=== PATIENT | male | born 1940 | race Caucasian/White ===

== ENCOUNTER 2017-10-11 11:30 | Observation (INO) | payer MEDICARE, OTHER ==
--- NOTE | 2017-10-11 12:04 | ED ---
Palpitations / Dysrhythmia - HPI Summary HPI Summary: This is migueibe Duc Patton documenting for attending Dr. Eddie Rios This patient is a 77 year old M presenting to [facility] with a chief complaint of irregular heart rate since at the latest 1045. Pt denies CP, SOB, and palpitations. FHx 1 brother: 3 ablations for Afib, 2nd brother: Afib. PMHx HTN, 3 stents, no OK, fx humerus, replaced humerus. In addition, pt endorses concern of consistently dropping platelet count. I, Dr. Morgan personally performed the services described in this documentation as scribed in my presence and it is both accurate and complete. - History of Current Complaint Chief Complaint: EDDysrhythmPalp Hx Obtained From: Patient Onset/Duration: Lasting Hours, Still Present Severity Initially: Mild Severity Currently: Mild Character: Irregular Aggravating: Nothing Alleviating: Nothing Associated Signs & Symptoms: Negative - Allergy/Home Medications Allergies/Adverse Reactions: Allergies Allergy/AdvReac Type Severity Reaction Status Date / Time morphine Allergy Unknown Verified 10/11/17 12:05 Reaction Details Home Medications: Home Medications Aspirin EC TAB* [Ecotrin EC Low Dose 81 MG*] 81 mg PO DAILY 10/11/17 [History Confirmed 10/11/17] Calcium Carbonate [Calcium] 1,000 mg PO DAILY 10/11/17 [History Confirmed ] Cetirizine* [ZyrTEC 10 MG TAB*] 10 mg PO DAILY 10/11/17 [History Confirmed 10/11] Cholecalciferol (Vitamin D3) [Vitamin D3] 1,000 unit PO DAILY 10/11/17 [History Confirmed 10/11/17] Fluticasone NASAL SPRAY 50MCG* [Flonase NASAL SPRAY 50MCG*] 2 spray BOTH NARES BID PRN 10/11/17 [History Confirmed 10/11/17] Gabapentin TAB(NF) [Neurontin 600 mg TAB(NF)] 300 mg PO QPM 10/11/17 [History Confirmed 10/11/17] Losartan TAB* [Cozaar TAB*] 50 mg PO DAILY 10/11/17 [History Confirmed 10/11/17] Pitavastatin (NF) [Livalo (NF)] 4 mg PO DAILY 10/11/17 [History Confirmed ] PMH/Surg Hx/FS Hx/Imm Hx Endocrine/Hematology History: Denies: Hx Sickle Cell Disease Cardiovascular History: Reports: Hx Hypertension Denies: Hx Myocardial Infarction History: Denies: Hx Dialysis Musculoskeletal History: Reports: Hx of Fracture(s) - left humerus, 6 places, replaced Sensory History: Reports: Hx Contacts or Glasses Denies: Hx Legally Blind, Hx Deafness Opthamlomology History: Reports: Hx Contacts or Glasses Denies: Hx Legally Blind EENT History: Denies: Hx Deafness Psychiatric History: Denies: Hx Schizophrenia - Surgical History Surgery Procedure, Year, and Place: left humerus replacement. - Family History Known Family History: Positive: Other - Afib, both younger brothers Negative: Hypertension, Diabetes - Social History Occupation: Retired Alcohol Use: Daily Alcohol Amount: 2 beers/night Hx Substance Use: No Hx Tobacco Use: Yes Smoking Status (MU): Former Smoker Review of Systems Negative: Fever Positive: Other - irregular heart beat. Negative: Palpitations, Chest Pain Negative: Shortness Of Breath Positive: no symptoms reported All Other Systems Reviewed And Are Negative: Yes Physical Exam - Summary Physical Exam Summary: VITAL SIGNS: Reviewed. GENERAL: Patient is a well-developed and nourished who is lying comfortable in the stretcher. Patient is not in any acute respiratory distress. HEAD AND FACE: No signs of trauma. No ecchymosis, hematomas or skull depressions. No sinus tenderness. EYES: PERRLA, EOMI x 2, No injected conjunctiva, no nystagmus. EARS: Hearing grossly intact. Ear canals and tympanic membranes are within normal limits. MOUTH: Oropharynx within normal limits. NECK: Supple, trachea is midline, no adenopathy, no JVD, no carotid bruit, no c- spine tenderness, neck with full ROM. CHEST: Symmetric, no tenderness at palpation LUNGS: Clear to auscultation bilaterally. No wheezing or crackles. CVS: Irregularly irregular rhythm, tachycardia at 126 beats per minutes. S1 and S2 present, no murmurs or gallops appreciated. ABDOMEN: Soft, non-tender. No signs of distention. No rebound no guarding, and no masses palpated. Bowel sounds are normal. EXTREMITIES: FROM in all major joints, no edema, no cyanosis or clubbing. NEURO: Alert and oriented x 3. No acute neurological deficits. Speech is normal and follows commands. SKIN: Dry and warm Triage Information Reviewed: Yes Vital Signs On Initial Exam: Initial Vitals Temp Pulse Resp BP Pulse Ox 97.7 F 64 18 142/78 98 10/11/17 11:32 10/11/17 11:32 10/11/17 11:32 10/11/17 11:32 10/11/17 11:32 Vital Signs Reviewed: Yes Diagnostics - Vital Signs Vital Signs Temp Pulse Resp BP Pulse Ox 10/11/17 11:32 97.7 F 64 18 142/78 98 - Laboratory Result Diagrams: 10/11/17 12:15 10/11/17 12:15 Lab Statement: Any lab studies that have been ordered have been reviewed, and results considered in the medical decision making process. - Radiology CXR Radiology Interpretation Completed By: Radiologist - No active cardiopulmonary disease is noted. Dr. Morgan has reviewed this report. - EKG 1206 Cardiac Rate: Tachycardia EKG Rhythm: Atrial Fibrillation ST Segment: Normal EKG Interpretation: ventricular bigeminy EKG Comparison: Other - no prior to compare with 1437 Cardiac Rate: NL - 94 EKG Rhythm: Atrial Fibrillation EKG Interpretation: atrial fibrillation, ventricular bigeminy, no change from previous EKG EKG Comparison: No Significant Change Course/Dx - Course Assessment/Plan: This patient is a 77-year-old male who presents to the emergency room without any complaints. He reports that he went to see the primary care physician and he was told that he has an increased heart rate therefore he was sent to the emergency department for further workup and management. EKG shows an atrial fibrillation with RVR and with multiple PVCs was ablated with a bigeminy. 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 At this point the patients examination is rate controlled, the patient was given aspirin. Blood test results without any significant abnormality except for troponin of 0.04. At this time I discussed the case with Dr. Ochoa from cariology and she recommends for the patient to be admitted to hospitals to place the patient into ablation and to order an echocardiogram s an inpatient. I discussed the case with Dr. Raymundo who accepted the patient for admission and she would place the patient in anticoagulants and ordered the echocardiogram. Patient is hemodynamically stable alert and oriented 3. - Diagnoses Differential Diagnosis/HQI/PQRI: Positive: Hypokalemia, Medication Induced, Paroxymal SVT, V-Tach Provider Diagnoses: Atrial fibrillation with RVR, Troponin level elevated - Physician Notifications Discussed Care Of Patient With: Wendy Ochoa Time Discussed With Above Provider: 14:55 Instructed by Provider To: Other - Recommends admission. Discharge - Sign-Out/Discharge Documenting (check all that apply): Patient Departure - admit - Discharge Plan Condition: Fair Disposition: ADMITTED TO [facility] Referrals: Ender Cadena [Primary Care Provider] - - Billing Disposition and Condition Condition: FAIR Disposition: Admitted to [facility] Consult Consult: 1500 Dr. Raymundo: Accepts admission.
--- OUTSIDE RECORDS SUMMARY | 2017-10-11 12:04 | XMS REPORT ---
:1940 External Reference #:[id number] Author Organization [facility] Address [address] [place] [address] [place] [address] Phone [phone] Care Team Providers Name Role Phone [facility] Primary Care Physician Unavailable Payers Type Date Identification Numbers Payment Provider Subscriber Medicare Primary Policy Number: [id number] Medicare Calin Kirby PayID: [id number] [address] [place] [address] [facility] Part [facility] Policy Number: [id number] [employer] Calin Kirby PayID: [id number] [address] [address] [facility] [employer] [facility] [place] [address] Problems Date Description Provider Status Onset: 11/29/2016 Obstructive sleep apnea syndrome Loreto Petit MD Active Onset: 10/18/2016 Difficulty breathing Loreto Petit MD Active Social History Type Date Description Comments Marital Status Lives With ETOH Use Consumes 1 beer per day Smoking Patient is a former smoker 2 PPD for 35 years. Quit in 1997 Recreational Drug Use Denies Drug Use Daily Caffeine Consumes on average 3 cups of regular coffee per day Exercise Type/Frequency Exercises sporadically Exercise Type/Frequency Treadmill, weight lifting 3[place]4x [place] 11[place]29[place]16 - Sleep Follow Up Allergies, Adverse Reactions, Alerts Date Description Reaction Status Severity Comments 10/18/2016 Morphine Liposomal active Medications Medication Date Status Form Strength Qnty SIG Indications Ordering Provider Losartan Active Tablets 50mg 1 by mouth Unknown Potassium 000 every day Livalo Active Tablets 4mg take 1 Unknown 000 tablet by mouth every night at bedtime Aspirin Active Tablets DR 81mg 1 by mouth Unknown 000 every day Calcium Active Tablets 500mg 2 by mouth Unknown 000 a day Vitamin D-3 Active Capsules 1000Unit 1 by mouth Unknown 000 every day Zyrtec 0 Active Tablets 10mg as needed Unknown Allergy 000 Gabapentin Active Tablets 600mg 1/2 tab by Unknown 000 mouth prn Flonase Active Suspension 50mcg/Act spray 1 Unknown Allergy 000 spray in Relief each nostril twice daily prn Vital Signs Date Vital Result Comment 2017 Height 68 inches 5'8" per pt Weight 186.12 lb Heart Rate 70 /min recheck 88 apical, irrgular, irregular capture BP Systolic Sitting 144 mmHg Rue regular cuff BP Diastolic Sitting 66 mmHg Rue regular cuff BP Systolic Recheck 160 mmHg BP Diastolic Recheck 80 mmHg Respiratory Rate 16 /min O2 % BldC Oximetry 98 % BMI (Body Mass Index) 28.3 kg/m2 11/29/2016 Height 68 inches 5'8" per pt Weight 190.00 lb With shoes Heart Rate 80 /min BP Systolic Sitting 132 mmHg Lue reg cuff BP Diastolic Sitting 68 mmHg Lue reg cuff Respiratory Rate 20 /min O2 % BldC Oximetry 97 % On Ra BMI (Body Mass Index) 28.9 kg/m2 10/18/2016 Height 68 inches 5'8" Weight 188.00 lb Heart Rate 72 /min BP Systolic Sitting 116 mmHg BP Diastolic Sitting 68 mmHg Respiratory Rate 14 /min O2 % BldC Oximetry 97 % BMI (Body Mass Index) 28.6 kg/m2 Neck Circumference in inches 15.5 Results Description No Information Procedures Date CPT Code Description Status 11/17/2016 96861 Polysomnography Sleep Staging 4+ Parameters W/Cpap Completed Encounters Type Date Location Provider CPT E/M Dx Office Visit 2017 [facility] Helen Bazzi, [address] G47.33 11:00a [facility], RN, ORE DRESSING ENGINEER-BC R00.8 Office Visit 11/29/2016 1:00p [place] [place] [address] G47.33 [facility] Office Visit 10/18/2016 2:00p Pul[facility]ology [place] [address] R06.83 [facility] R06.81 G47.10 R12 Plan of Care 2017 - Heeln Bazzi DNP, RN, ORE DRESSING ENGINEER-BCG47.33 Obstructive sleep apnea ( adult) (pediatric)Comments:11/17/16 NPSG severe AHI 33.6/hour, worse REM 50.3/ hour, supine 81.4/hour, dahlia oxygen 83%. wt 188#On CPAP auto 8-10 AHI 2.9/ hourFollow up:1 yearRecommendations:Continue PAP device, Benefitting and compliant with treatment. Cleaning Wipe off mask daily (baby wipe-no scent, or warm water) Clean mask, tubing, filter, and water chamber weekly in mild no scent dish soap and water. Hang to dry. So-Clean is an option (not covered by insurance) If you have any sleepiness while driving you MUST avoid operating a vehicle or machinery. If you have difficulty with your equipment, or need to replace your mask or hoses, please contact your homecare agency. A weight change of 20 pounds or more may have an effect on your equipment; if you are experiencing problems please call for an appointment. If you have any further questions, please call the [facility] at [phone].R07.8 Other abnormalities of heart beatRecommendations:To go to Emergency Department via wheelchair for irregular heart beat evaluation. Report provided to Wisam the charge nurse.
[2017-10-11 12:24] LABS: ABS Basophils 0 10^3/ul (0-0.2); ABS Eosinophils 0.1 10^3/ul (0-0.6); ABS Lymphocytes 1.3 10^3/ul (1.0-4.8); ABS Monocytes 0.5 10^3/ul (0-0.8); ABS Neutrophils 3.5 10^3/ul (1.5-7.7); ABS Nucleated RBC 0 10^3/ul; Hematocrit 43 % (42-52); Hemoglobin 14.2 g/dl (14.0-18.0); Mean Corpuscular HGB Conc 33 g/dl (31-36); Mean Corpuscular Hemoglobin 31 pg (27-31); Mean Corpuscular Volume 94 fL (80-94); Mean Platelet Volume 10.4 um3 (7.4-10.4); Nucleated Red Blood Cells % 0.1; Platelet Count 136 10^3/ul (150-450); Red Blood Count 4.61 10^6/ul (4.00-5.40); Red Cell Distribution Width 14 % (10.5-15); White Blood Count 5.4 10^3/ul (3.5-10.8)
[2017-10-11] MEDS ORDERED: Diltiazem IV VIAL* 5 MG/ML 10 ML VIAL IV SLOW PU ONE (12:33)
[2017-10-11] MEDS ORDERED: NS 0.9% 1000 ML* 1,000 ML IV ONE (12:33)
[2017-10-11 12:38] LABS: INR 0.95 (0.77-1.02)
[2017-10-11] MEDS ORDERED: Diltiazem IV* 5 MG/ML 5 ML VIAL (for loading dose/IV Push) (25 MG) ONE (12:41)
--- NOTE | 2017-10-11 13:07 | RAD ---
Indication: Chest pain. Single frontal view of the chest performed at 1240 hours was reviewed. No prior study is available for comparison. No mediastinal shift is noted. Heart is of normal size and configuration. Lung ledesma appear clear. Evidence of left humeral head prosthesis is present. IMPRESSION: NO ACTIVE CARDIOPULMONARY DISEASE IS NOTED.
[2017-10-11 13:37] LABS: Urine Appearance Clear; Urine Blood Negative (Negative); Urine Color Colorless; Urine Ketones Negative (Negative); Urine Protein Negative (Negative); Urine Specific Gravity 1.004 (1.010-1.030); Urine Urobilinogen Negative (Negative)
[2017-10-11] MEDS ORDERED: Metoprolol Tartrate TAB* 25 MG PO ONE (16:46)
--- NOTE | 2017-10-11 21:03 | HP ---
CC: NARA Villasenor * HISTORY AND PHYSICAL: DATE OF ADMISSION: 10/11/17 PRIMARY CARE PROVIDER: NARA Villasenor. CHIEF COMPLAINT: Rapid heart rate. HISTORY OF PRESENT ILLNESS: Mr. Kirby is a 77-year-old male who was at a routine visit with Helen Bazzi NP, for evaluation of his obstructive sleep apnea when on exam he was noted to be in rapid atrial fibrillation. The patient was wheeled onto the emergency room for evaluation. The patient states that he has been feeling incredibly well. He states, in fact, yesterday he was on a bike. He denies any chest pain. He denies any palpitations. He denies shortness of breath. He denies any increased fatigue. The patient states he recalls nothing out of the ordinary over the last 2 weeks. PAST MEDICAL HISTORY: 1. Hypertension. 2. Hyperlipidemia. PAST SURGICAL HISTORY: 1. Left partial shoulder replacement. 2. Hemorrhoidectomy. 3. Hernia repair. MEDICATIONS: 1. Flonase 2 squirts both nostrils twice daily p.r.n. allergies. 2. Gabapentin 300 mg p.o. q.h.s. 3. Zyrtec 10 mg p.o. daily. 4. Losartan 50 mg p.o. daily. 5. Vitamin D3 1000 units p.o. daily. 6. Calcium carbonate 1000 mg p.o. daily. 7. Aspirin 81 mg p.o. daily. 8. Pitavastatin 4 mg p.o. daily. ALLERGIES: MORPHINE. FAMILY HISTORY: Mom at the age of 86, she had Parkinson's. Dad at the age of 48. He from complications from a surgery. SOCIAL HISTORY: The patient is a former smoker. He quit approximately 20 years ago. He admits to smoking 2 to 3 packs per day for approximately 40 years. He drinks 1 to 2 beers nightly. He does state that on Monday evening, he drank 4 to 5 drinks as opposed to his normal 1 to 2. 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 He is . He has 3 children. His , Rafaela, is his healthcare proxy. REVIEW OF SYSTEMS: A complete 11 system review of systems was obtained. Pertinent positives and negatives as per HPI and otherwise negative. PHYSICAL EXAMINATION GENERAL: The patient is a well-developed, elderly male, seen sitting up in the stretcher, in no acute distress. VITAL SIGNS: Blood pressure 182/98, heart rate 142, respiratory rate 17, temp 97.9, O2 sat 97% on room air. HEENT: Pupils are equal and round. Extraocular muscles are intact. Oropharynx is clear. Oral mucosa is moist. NECK: There is no submandibular, cervical, or supraclavicular adenopathy. Thyroid is not enlarged. No thyroid nodules are noted. PULMONARY: Lungs are clear to auscultation bilaterally. CARDIAC: Normal S1, S2. Heart rate rate is irregularly regular, it is tachycardic. There are no murmurs. There is no lower extremity edema. ABDOMEN: Bowel sounds present. Abdomen is soft, nontender, nondistended. MUSCULOSKELETAL: There is no cyanosis or clubbing of the digits. There is full active range of motion of all 4 extremities. NEURO: Cranial nerves II through XII are grossly intact. Sensation is intact to light touch throughout. Strength is 5/5 and symmetric in both upper and lower extremities bilaterally. PSYCH: The patient is alert. He is oriented x3. Affect appears appropriate. SKIN: Warm and dry. There are no rashes. LABORATORY DATA: WBC 5.4, hemoglobin 14.2, hematocrit 43, platelets 136. INR 0.95. Sodium 140, potassium 4.4, chloride 106, CO2 29, BUN 17, creatinine 1.03 , glucose 109, lactic acid 0.7, calcium 9.5, magnesium 2.4. Bilirubin 0.8, AST 16, ALT 12, alk phos 58. Troponin 0.04. BNP 351. Albumin 4.2. TSH 2.61. Urinalysis is negative for signs of infection. EKG reveals atrial fibrillation with frequent ventricular bigeminy. Chest x-ray reveals no active cardiopulmonary disease. ASSESSMENT AND PLAN: Mr. Kirby is a 77-year-old male with a history of hypertension and hyperlipidemia, who was seen today for routine followup medical visit when he was identified to be in rapid atrial fibrillation. 1. Rapid atrial fibrillation. The patient has received initially IV diltiazem in the emergency room with some improvement in his heart rate. He slowed into the 90s; however, as the diltiazem wore off, his heart rate has increased up to the 120s to 130s again. The patient subsequently being given a dose of metoprolol tartrate 25 mg p.o. x1. The patient was not completely sure that he wanted to be admitted; however, after his arrived, he did decide that he would stay for admission and cardiology consultation. The patient will be started on metoprolol tartrate 25 mg p.o. twice daily and Eliquis 5 mg p.o. twice daily. He will be seen by Cardiology tomorrow. He will be n.p.o. after midnight for a possible JULI-guided cardioversion. The patient is in agreement with this plan. It is unclear how long the patient had been in atrial fibrillation or what precipitated it. 2. Hypertension. The patient's blood pressure has fluctuated quite a bit in the emergency room. I have decreased his a.m. losartan dose to 25 mg as I am adding metoprolol; however, if his blood pressure remains elevated through the night, the losartan should be increased back up to 50 mg. 3. Hyperlipidemia. We will continue statin. 4. Obstructive sleep apnea. We will continue CPAP. The patient may use his own, which his brought. 5. DVT prophylaxis: According to the Adult Thrombosis Prophylaxis Risk Factor Assessment Guide, the patient has a total risk factor score of 4, making him high risk. He is going to be started on Eliquis for his atrial fibrillation and this will act as his DVT prophylaxis. 6. Code status is full. TIME SPENT: Sixty five minutes was spent admitting this patient. [id number]/CPS #: [id number] MTDD
[2017-10-11] MEDS: Metoprolol Tartrate TAB* 25 MG PO SCH (21:09)
[2017-10-11] MEDS: Apixaban* 5 MG TAB PO SCH (21:09)
[2017-10-11] MEDS: Gabapentin CAP(*) 300 MG PO SCH (21:10)
[2017-10-12] MEDS: PITAVASTATIN 4 MG PO SCH (08:19)
[2017-10-12] MEDS: Metoprolol Tartrate TAB* 25 MG PO SCH ×2 (08:21→21:13)
[2017-10-12] MEDS: Aspirin EC TAB* 81 MG TAB.EC PO SCH (08:21)
[2017-10-12] MEDS: Apixaban* 5 MG TAB PO SCH ×2 (08:21→21:14)
[2017-10-12] MEDS ORDERED: Losartan TAB* 25 MG PO SCH (09:00)
[2017-10-12 10:07] LABS: ABS Basophils 0 10^3/ul (0-0.2); ABS Eosinophils 0.1 10^3/ul (0-0.6); ABS Lymphocytes 1.7 10^3/ul (1.0-4.8); ABS Monocytes 0.8 10^3/ul (0-0.8); ABS Neutrophils 4.8 10^3/ul (1.5-7.7); ABS Nucleated RBC 0 10^3/ul; Eosinophil % 1.8 % (0-6); Hematocrit 45 % (42-52); Hemoglobin 14.9 g/dl (14.0-18.0); Lymphocyte % 22.7 % (25-47); Mean Corpuscular HGB Conc 33 g/dl (31-36); Mean Corpuscular Hemoglobin 31 pg (27-31); Mean Corpuscular Volume 93 fL (80-94); Mean Platelet Volume 10.5 um3 (7.4-10.4); Nucleated Red Blood Cells % 0; Platelet Count 143 10^3/ul (150-450); Red Blood Count 4.78 10^6/ul (4.00-5.40); Red Cell Distribution Width 14 % (10.5-15); White Blood Count 7.4 10^3/ul (3.5-10.8)
[2017-10-12 10:18] LABS: EGFR Non-African American 61.7 (>60)
[2017-10-12] MEDS ORDERED: Digoxin IV* 0.5 MG/2 ML AMP (0.25 MG/ML) IV SLOW PU ONE (10:18)
[2017-10-12] MEDS ORDERED: Naloxone* 0.4 MG/ML 1 ML VIAL ONE (10:48)
[2017-10-12] MEDS ORDERED: fentaNYL* 50 MCG/ML 2 ML VIAL (100 MCG VIAL) ONE (10:48)
[2017-10-12] MEDS ORDERED: Lidocaine 2% VISCOUS* 15 ML UDC ONE (10:48)
[2017-10-12] MEDS ORDERED: Flumazenil* 0.1 MG/ML 5 ML MDV ONE (10:48)
[2017-10-12] MEDS ORDERED: Midazolam* 1 MG/ML 10 ML VIAL (10 MG) ONE (10:49)
--- NOTE | 2017-10-12 13:52 | ECHO ---
Patient: GUILLERMO MULLIGAN [facility] Rec#: [id number] : 1940 Date: 10/12/2017 Age: 77y Height: 173 cm / 68.1 in Weight: 84 kg / 185.1 lbs Sex: M BSA: 1.98 Room#: [facility] Admit Date#: 10/11/2017 Type: Inpatient Referring: Eris Contreras MD Reading: Eris Contreras MD Certified Wellness Program Manager: Aditi Gal[facility] Transthoracic Echocardiogram Indication: AFIB BP: 114/60 HR: 97 Rhythm: NSR with PVCs Findings History: HTN, HLD, BELLA Technical Comments: The study quality is fair. Left Ventricle: The left ventricular chamber size is normal. Mild to moderate concentric left ventricular hypertrophy is observed. The estimated ejection fraction is 45-50%. Relative hypokinesis of the inferior and inferoseptal segments. The assessment of diastolic function is non-diagnostic. The patient was unable to perform a Valsalva maneuver. Left Atrium: The left atrium is moderate to severely dilated. Right Ventricle: The right ventricular chamber size and systolic function are within normal limits. Right Atrium: The right atrium is mild to moderately dilated. Aortic Valve: The aortic valve is trileaflet. The aortic valve leaflets are mildly thickened. There is no evidence of aortic regurgitation. There is no evidence of aortic stenosis. Mitral Valve: The mitral valve leaflets are mildly thickened. There is mild mitral regurgitation. The mitral regurgitant jet is laterally directed. The mitral regurgitant jet is eccentric. There is no evidence of mitral stenosis. Tricuspid Valve: The tricuspid valve leaflets are normal. There is trace tricuspid regurgitation. Pulmonic Valve: There is no evidence of pulmonic valve thickening. There is mild pulmonic regurgitation. Pericardium: There is no significant pericardial effusion. Aorta: The aortic root appears normal. There is no dilatation of the aortic arch. Pulmonary Artery: The main pulmonary artery is not well visualized. Venous: There is a greater than 50% respiratory change in the inferior vena cava dimension. Summary: There was not any prior study for comparison. Conclusions Mild to moderate concentric left ventricular hypertrophy is observed. The estimated ejection fraction is 45-50%. Relative hypokinesis of the inferior and inferoseptal segments. The left atrium is moderate to severely dilated. The right atrium is mild to moderately dilated. The aortic valve leaflets are mildly thickened. The mitral regurgitant jet is laterally directed. The mitral regurgitant jet is eccentric. There is trace tricuspid regurgitation. There is mild pulmonic regurgitation. Measurements Name Value Normal Range RVIDd (AP) 2D 2.8 cm (0.9 - 2.6) RAd ISD 4CH 6 cm (3.4 - 4.9) RA (A4C)W 4.9 cm (2.9 - 4.6) IVSd (2D) 1.5 cm (0.6 - 1) LVPWd (2D) 1.3 cm (0.6 - 1) LVIDd (2D) 5.2 cm (3.6 - 5.4) LVIDs (2D) 3.6 cm - LV FS (2D) 31 % (25 - 45) Aortic Annulus 2 cm (1.4 - 2.6) Ao root diameter (2D) 3.1 cm (2.1 - 3.5) Ascending Ao 3.3 cm (2.1 - 3.4) Aortic arch 2.8 cm (1.8 - 3.4) LA dimension (AP) 2D 4.3 cm (2.3 - 3.8) LAd ISD 4CH 6.6 cm (2.9 - 5.3) LA ISD 4CH W 5.4 cm (2.5 - 4.5) Name Value Normal Range LA ESV BP (A/L) index 52 ml/m2 - Name Value Normal Range MV E-wave Vmax 1.2 m/sec - MV deceleration time 190 msec - MV A-wave Vmax 0.7 m/sec - MV E:A ratio 1.6 ratio - LV septal e' Vmax 0.06 m/sec - LV lateral e' Vmax 0.11 m/sec - LV E:e' septal ratio 18 ratio - LV E:e' lateral ratio 11 ratio - Name Value Normal Range AV Vmax 1.1 m/sec - AV VTI 20 cm - AV peak gradient 5 mmHg - AV mean gradient 3 mmHg - LVOT Vmax 0.9 m/sec - LVOT VTI 14.5 cm - LVOT peak gradient 3.2 mmHg - LVOT mean gradient 1 mmHg - LARISSA Vmax 0.6 m/sec - Name Value Normal Range MV Vmax 1.3 m/sec - MV VTI 37 cm - MV peak gradient 7 mmHg - MV mean gradient 1 mmHg - MV PHT 57 msec - MVA (PHT) 3.9 cm2 - MVA (continuity VTI) 1.2 cm2 - Name Value Normal Range RAP 8 mmHg - Name Value Normal Range PV Vmax 0.5 m/sec - PV peak gradient 1 mmHg -
--- NOTE | 2017-10-12 13:57 | TEE ---
Patient: GUILLERMO MULLIGAN [facility] Rec#: [id number] : 1940 Date: 10/12/2017 Age: 77y Height: 173 cm / 68.1 in Weight: 84 kg / 185.1 lbs Sex: M BSA: 1.98 Admit Date#: 10/11/2017 Type: Inpatient Referring: Eris Contreras MD Performing: Eris Contreras MD Reading: Eris Contreras MD Rn Mental Health: Aditi Gallego RD,RDMS Nurse: Rina Garzon RN Transesophageal Echocardiogram Indication: AFIB BP: 119/61 HR: 81 Rhythm: A-Fib Findings History: HTN, HLD, BELLA Technical Comments: The study quality is good. Left Ventricle: The left ventricular chamber size is normal. There is mildly decreased left ventricular systolic function. The estimated ejection fraction is 45-50%. Mild global hypokinesis with relative inferior hypokinesis. The assessment of diastolic function is non-diagnostic. Left Atrium: The left atrium is moderately dilated. There is no thrombus visualized in the left atrial appendage. Right Ventricle: The right ventricular chamber size and systolic function are within normal limits. Right Atrium: The right atrial cavity size is normal. The bubble study is negative. A patent foramen ovale is not demonstrated with color Doppler and agitated contrast. Aortic Valve: The aortic valve is trileaflet. The aortic valve leaflets are mildly thickened. There is no evidence of aortic regurgitation. There is no evidence of aortic stenosis. Mitral Valve: The mitral valve leaflets are mildly thickened. There is mild mitral valve prolapse.redundant chordae. There is moderate mitral regurgitation. The mitral regurgitant jet is posteriorly directed.Posterior and laterally. The mitral regurgitant jet is laterally directed. The mitral regurgitant jet is eccentric. There is no evidence of mitral stenosis. Tricuspid Valve: The tricuspid valve leaflets are normal. There is trace to mild tricuspid regurgitation. Pulmonic Valve: The pulmonic valve appears normal. There is mild pulmonic regurgitation. Aorta: There is mild dilatation of the ascending aorta. There is mild dilatation of the aortic root. There is plaque visualized in the ascending aorta. There is plaque visualized in the transverse aorta. There is plaque visualized in the descending aorta. Pulmonary Artery: The main pulmonary artery appears normal. Venous: The inferior vena cava appears normal. The flow pattern of the pulmonary veins appear normal. The superior vena cava appears normal. JULI Procedures: All standard views were attempted within the limitations of patient tolerance and safety. History and physical as well as labs were reviewed. The patient was in a fasting state. Risks and benefits of the procedure, including alternatives, were discussed and written informed consent was obtained. The patient and/or their health care apparel trimmings sales representative expressed understanding of the procedure, risks and benefits. Baseline and continuous monitoring of blood pressure, heart rate, pulse oximetry and heart rhythm was performed throughout the procedure. The appropriate time-out procedure was performed as per [facility] protocol. The patient was placed in the left lateral decubitus position. The patient's posterior pharynx was anesthetized with 20ml of 2% viscous lidocaine. The patient received IV Midazolam with a total dose of 4 mg The patient received IV Fentanyl with a total dose of 25 mcg An oral bite block was inserted for protection of oral dentition. The multiplane transesophageal echocardiogram probe was inserted through the posterior oropharynx and advanced into the esophagus without difficulty. Multiple 2D images were obtained of the heart and its related structures. Color flow Doppler was used for evaluation. Spectral Doppler was also used. The atrial septum was interrogated with color flow Doppler. At the conclusion of the procedure the probe was removed with continuous suction without complications. The patient tolerated the procedure with no apparent complications. Contrast: Intravenous agitated saline contrast was used to assess intracardiac shunting. Image 57 Conclusions The estimated ejection fraction is 45-50%. Mild global hypokinesis with relative inferior hypokinesis. The left atrium is moderately dilated. There is no thrombus visualized in the left atrial appendage. The aortic valve leaflets are mildly thickened. There is mild mitral valve prolapse. The mitral regurgitant jet is posteriorly and laterally directed. The mitral regurgitant jet is eccentric. There is trace to mild tricuspid regurgitation. There is mild pulmonic regurgitation. There is mild dilatation of the ascending aorta. There is mild dilatation of the aortic root. There is plaque visualized in the ascending aorta. There is plaque visualized in the transverse aorta. There is plaque visualized in the descending aorta. No prior echo at this time. Measurements Name Value Normal Range Aortic Annulus 2.3 cm (1.4 - 2.6) Ao root diameter (2D) 3.6 cm (2.1 - 3.5) Ascending Ao 3.6 cm (2.1 - 3.4)
--- NOTE | 2017-10-12 17:09 | CONS ---
CC: Eris Contreras MD; NARA Villasenor * CARDIOLOGY CONSULTATION: DATE OF CONSULT: 10/12/17 REASON FOR CONSULT: Atrial fibrillation, PVCs. HISTORY OF PRESENT ILLNESS: This is a very pleasant 77-year-old gentleman accompanied by his , Michelle. He was in [place], [place], 6 months a year and in [place], 6 months a year. He has a history of coronary artery disease, hypertension, hyperlipidemia, tobacco use in the past. He also has a history of sleep apnea. He has a history of moderate alcohol use, was in his usual state of health. He had 4 to 5 beers on Monday. He presented to the sleep clinic for routine followup on Monday and was incidentally noted to have a rapid heart rate. He was sent to the ER and found to be in atrial fibrillation with frequent PVCs. He was completely asymptomatic. He denies any shortness of breath, lightheadedness, palpitations, or change in his exercise capacity. He does not exercise regularly, but does work in his yard and said he has not problems doing that. He has had no strokes or mini-strokes and no bleeding problems. He denies orthopnea or peripheral edema. PAST MEDICAL HISTORY: Includes thrombocytopenia for last year, hypertension, hyperlipidemia, coronary artery disease with 3 stents 1 in 2000 and 1 in 2002 in [place]. He reports that he had an evaluation with his press tender long goods in May in [place] and had negative carotid Doppler, an echo with some mitral regurgitation and stress test that according to the patient was negative. He also has a history of sleep apnea, tobacco use, discontinued 20 years ago. PAST SURGICAL HISTORY: Includes left shoulder partial replacement after falling on the left shoulder shattering his humerus. He had a herniorrhaphy and hemorrhoidectomy. MEDICATIONS: As outpatient includes: 1. Flonase. 2. Gabapentin 300 mg q.h.s. 3. Zyrtec 10 mg a day. 4. Losartan 50 mg a day. 5. Vitamin D3, 1000 units a day. 6. Calcium carbonate 1000 mg a day. 7. Aspirin 81 mg a day. 8. Pitavastatin 4 mg a day. ALLERGIES: Include MORPHINE which results in increased pain. FAMILY HISTORY: Includes 2 brothers and a sister, 1 brother has had 3 ablations for AFib, another brother has AFib and is on medical treatment, sister is well. His mother had Parkinson's and heart disease and at 84. Father at 48 at gallbladder surgery. According to the patient, it was an anesthetic complication. SOCIAL HISTORY: He is , has 3 adult sons. 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 Caffeine: He drinks 3 or more cups of coffee a day. Alcohol: 1 to 2 beers a day, and occasionally 3 to 4 or more on occasion. REVIEW OF SYSTEMS: Review of systems x10 was negative except as above. PHYSICAL EXAM: He is a well-developed, well-nourished gentleman in no apparent distress. Heart rate of 100 and irregular with some PVCs, blood pressure 119/61 , no significant JVD. Carotids 2+ without bruits. Atraumatic and normocephalic. Extraocular muscles intact. Sclerae anicteric. Cardiac Exam: S1 and S2 with a 2/6 holosystolic murmur at the apex. Chest was clear. No CVAT. Abdomen: Bowel sounds present and nontender. Radial pulses intact. Femoral pulses intact without bruits. Distal pulses intact. No edema. Motor strength 5/5 bilaterally. Deep tendon reflexes 2/4. Alert and oriented x3. No cervical adenopathy. No inguinal adenopathy. Skin turgor normal. DIAGNOSTIC STUDIES/LAB DATA: Include white count of 7.4, hemoglobin of 14.9, hematocrit of 45, platelet count 143. Potassium yesterday was 4.4, BUN is 17, creatinine 1.03, glucose of 109, magnesium of 2.4, troponin 0.04 yesterday at noon and 0.05 yesterday evening, BNP elevated at 351. TSH was normal. INR 0.95 and EKG from yesterday revealed atrial fibrillation with ventricular response in the 90s and frequent PVCs, sometimes bigeminy, possible old inferior NH, and nonspecific lateral ST-T changes. Chest x-ray was negative. IMPRESSION: My impression is that Mr. Kirby appears to have asymptomatic atrial fibrillation with a rapid ventricular response and frequent PVCs. He also has a history of moderate alcohol use, hypertension, hyperlipidemia, sleep apnea, mitral regurgitation, and coronary disease. I did discuss at length with him and his , Michelle the development of atrial fibrillation and the challenges of managing this in light of the risk for cardioembolic events, tachycardia induced cardiomyopathy, and mitral regurgitation. For the time being, I am recommending the followin. I suggested that we continue rate control with beta blockers and perhaps dig given his low-normal blood pressure. 2. I suggested anticoagulation as we are doing. 3. I suggested a JULI-guided cardioversion both to evaluate for intracardiac thrombus and guide cardioversion timing as well as to evaluate his MR. 4. I asked him to refrain from caffeine and alcohol use which may be lowering the threshold for his atrial fibrillation. 5. He is to avoid dehydration. 6. He is to continue with his treatment for sleep apnea. 7. I asked him to learn how to check his pulse on a daily basis and report any irregular or fast rhythms that may dictate the need for repeat evaluation and he understands we may have to escalate therapy as symptoms warrant. 8. If he can control his rate without symptoms, he may be a candidate for rate control and anticoagulation custodial. I also discussed the potential for progression of his MR and possible need for intervention if he develops severe MR with AFib or exercise limitation related to his AFib. [id number]/[facility] #: [id number] ELVA
[2017-10-12] MEDS: Gabapentin CAP(*) 300 MG PO SCH (18:00)
[2017-10-12] MEDS ORDERED: Gabapentin CAP(*) 300 MG PO ONE (18:07)
--- NOTE | 2017-10-12 18:08 | PN ---
Subjective Date of Service: 10/12/17 Interval History: Patient reports he feel "fine" - no CP or SOB . Biggest c/o is that he is hungry. plan for stress test tomorrow. at bedside. Discussed plan of care with and patient. Objective Active Medications: Apixaban (Eliquis*) 5 mg PO BID COUNTS INCLUDE 234 BEDS AT THE [facility] Last Admin: 10/12/17 08:21 Dose: 5 mg Aspirin (Aspirin Ec Tab*) 81 mg PO DAILY COUNTS INCLUDE 234 BEDS AT THE [facility] Last Admin: 10/12/17 08:21 Dose: 81 mg Gabapentin (Neurontin Cap(*)) 600 mg PO QPM COUNTS INCLUDE 234 BEDS AT THE [facility] Gabapentin (Neurontin Cap(*)) 300 mg PO ONCE ONE Stop: 10/12/17 18:08 Metoprolol Tartrate (Lopressor Tab*) 25 mg PO BID COUNTS INCLUDE 234 BEDS AT THE [facility] Last Admin: 10/12/17 08:21 Dose: 25 mg Pitavastatin (Livalo (Nf)) 4 mg PO DAILY COUNTS INCLUDE 234 BEDS AT THE [facility] Last Admin: 10/12/17 08:19 Dose: Not Given Vital Signs - 8 hr 10/12/17 10/12/17 10/12/17 15:48 16:03 16:18 Temperature Pulse Rate Respiratory Rate Blood Pressure 104/76 120/65 124/52 (mmHg) O2 Sat by Pulse Oximetry 10/12/17 10/12/17 10/12/17 16:19 16:32 16:48 Temperature 97.5 F Pulse Rate 72 Respiratory 16 Rate Blood Pressure 129/62 132/57 (mmHg) O2 Sat by Pulse 99 Oximetry 10/12/17 10/12/17 17:00 18:00 Temperature Pulse Rate 71 Respiratory 18 Rate Blood Pressure (mmHg) O2 Sat by Pulse 98 Oximetry Oxygen Devices in Use Now: None Appearance: well developed 77 yo male A+O x3 in NAD Eyes: No Scleral Icterus, PERRLA Ears/Nose/Mouth/Throat: NL Teeth, Lips, Gums, Mucous Membranes Moist Neck: NL Appearance and Movements; NL JVP Respiratory: Symmetrical Chest Expansion and Respiratory Effort, Clear to Auscultation Cardiovascular: NL Sounds; No Murmurs; No JVD, RRR, No Edema Abdominal: NL Sounds; No Tenderness; No Distention Extremities: No Edema, No Clubbing, Cyanosis Skin: No Rash or Ulcers, No Nodules or Sclerosis Neurological: Alert and Oriented x 3, NL Sensation, NL Gait, NL Muscle Strength and Tone Lines/Tubes/Other Access: Clean, Dry and Intact Peripheral IV Nutrition: Taking PO's Result Diagrams: 10/12/17 09:52 10/12/17 09:52 Assess/Plan/Problems-Billing Assessment: 77 yo male with PMH of HTN, HLD, hx of tobacco abuse, hx of CAD with stent placement, sleep apnea who presented to the ER with tachycardia found to be in afib with rvr - Patient Problems (1) Atrial fibrillation with RVR Comment: - JULI with cardioversion this am - now in SR with noted frequent PVCs - Continue BB - continue Eliquis (2) CAD (coronary artery disease) Comment: - No CP/SOB - Mildly elevated troponins 0.04, 0.05, 0.05 - Plan for stress test in am (3) HTN (hypertension) Status: Chronic Comment: - stable. - continue losartan, new BB (monitor blood pressure with new agent) (4) DVT prophylaxis Status and Disposition: OBV. plan for stress test in am. Plan for DC tomorrow.
--- NOTE | 2017-10-12 21:56 | CARD ---
CARDIOLOGY PROCEDURE NOTE: DATE OF PROCEDURE: 10/12/17 - ROOM #[id number] PROCEDURE: Cardioversion. This is a 77-year-old gentleman with history of hypertension, coronary artery disease who presented with asymptomatic AFib with rapid ventricular response and frequent PVCs. Informed consent was obtained. The patient was evaluated with a transesophageal echo. He received 4 mg of Versed and 25 mcg of fentanyl for the JULI. JULI revealed no intracardiac thrombus. Subsequently, he received an additional 2 mg before the cardioversion. A single synchronized biphasic shock of 120 joules was applied with successful conversion to sinus rhythm with frequent PVCs. The patient tolerated the procedure without complication. IMPRESSION: Successful cardioversion from atrial fibrillation to sinus rhythm. [id number]/[facility] #: [id number] ELVA
[2017-10-13 06:05] LABS: ABS Basophils 0 10^3/ul (0-0.2); ABS Eosinophils 0.2 10^3/ul (0-0.6); ABS Lymphocytes 1.4 10^3/ul (1.0-4.8); ABS Monocytes 0.6 10^3/ul (0-0.8); ABS Neutrophils 4.7 10^3/ul (1.5-7.7); ABS Nucleated RBC 0 10^3/ul; Eosinophil % 2.2 % (0-6); Hematocrit 39 % (42-52); Hemoglobin 13.2 g/dl (14.0-18.0); Lymphocyte % 20.1 % (25-47); Mean Corpuscular HGB Conc 34 g/dl (31-36); Mean Corpuscular Hemoglobin 31 pg (27-31); Mean Corpuscular Volume 93 fL (80-94); Mean Platelet Volume 10.9 um3 (7.4-10.4); Nucleated Red Blood Cells % 0; Platelet Count 115 10^3/ul (150-450); Red Blood Count 4.25 10^6/ul (4.00-5.40); Red Cell Distribution Width 14 % (10.5-15); White Blood Count 6.9 10^3/ul (3.5-10.8)
[2017-10-13] MEDS: Aspirin EC TAB* 81 MG TAB.EC PO SCH (08:37)
[2017-10-13] MEDS: Apixaban* 5 MG TAB PO SCH (08:37)
[2017-10-13] MEDS: PITAVASTATIN 4 MG PO SCH (08:38)
[2017-10-13] MEDS: Metoprolol Tartrate TAB* 25 MG PO SCH (08:38)
--- NOTE | 2017-10-13 12:38 | RAD ---
Indication: Abnormal troponin, atrial fibrillation. Myocardial perfusion scan was performed utilizing 1 day protocol. Rest myocardial perfusion was performed after intravenous injection of 10.3 mCi of technetium 99m tetrofosmin. Treadmill stress study was performed and 25.8 mCi of technetium 99m tetrofosmin was injected for the stress portion of the study. The maximum heart rate achieved was 96% of the maximum predicted value. No attenuation correction could be performed. There is mild ventriculomegaly noted. There is a focal fixed defect in the inferolateral wall of moderate size. No evidence of reversible change is noted. The ejection fraction at stress is 45%. Evaluation of wall motion demonstrates no focal wall motion abnormality. IMPRESSION: Moderate-sized fixed defect in the inferolateral wall. Mild ventriculomegaly. Ejection fraction of 45%. ASSESSMENT: Intermediate risk Based on imaging criteria from ACC/AHA 2002 Guideline Update for the Management of Patients With Chronic Stable Angina Table 23. Noninvasive Risk Stratification.
--- NOTE | 2017-10-13 15:40 | PN ---
Subjective Date of Service: 10/13/17 Interval History: Pt reports he feels good today. He denies CP/SOB. He denies palpitations. He hopes to go home. Denies orthopnea, or LE edema. Objective Active Medications: Apixaban (Eliquis*) 5 mg PO BID [facility] Last Admin: 10/13/17 08:37 Dose: 5 mg Aspirin (Aspirin Ec Tab*) 81 mg PO DAILY [facility] Last Admin: 10/13/17 08:37 Dose: 81 mg Gabapentin (Neurontin Cap(*)) 600 mg PO QPM [facility] Metoprolol Tartrate (Lopressor Tab*) 25 mg PO BID [facility] Last Admin: 10/13/17 08:38 Dose: Not Given Pitavastatin (Livalo (Nf)) 4 mg PO DAILY [facility] Last Admin: 10/13/17 08:38 Dose: Not Given Vital Signs - 8 hr 10/13/17 10/13/17 08:46 12:09 Temperature 97.5 F 98.3 F Pulse Rate 67 112 Respiratory 20 16 Rate Blood Pressure 116/57 119/61 (mmHg) O2 Sat by Pulse 94 90 Oximetry Oxygen Devices in Use Now: None Appearance: 77 yo male sitting up on the side of the bed in NAD. A+O x3 Eyes: No Scleral Icterus, PERRLA Ears/Nose/Mouth/Throat: NL Teeth, Lips, Gums, Mucous Membranes Moist Neck: NL Appearance and Movements; NL JVP Respiratory: Symmetrical Chest Expansion and Respiratory Effort, Clear to Auscultation Cardiovascular: NL Sounds; No Murmurs; No JVD, No Edema, - - irregular Abdominal: NL Sounds; No Tenderness; No Distention Lymphatic: No Cervical Adenopathy Extremities: No Edema, No Clubbing, Cyanosis Skin: No Rash or Ulcers, No Nodules or Sclerosis Neurological: Alert and Oriented x 3, NL Sensation, NL Muscle Strength and Tone Lines/Tubes/Other Access: Clean, Dry and Intact Peripheral IV Nutrition: Taking PO's Result Diagrams: 10/13/17 05:37 10/13/17 05:37 Assess/Plan/Problems-Billing Assessment: 77 yo male with PMH of HTN, HLD, hx of tobacco abuse, hx of CAD with stent placement, sleep apnea who presented to the ER with tachycardia found to be in afib with rvr - Patient Problems (1) Atrial fibrillation with RVR Comment: - new afib - JULI with cardioversion 10/12- now in SR with noted frequent PVCs - Continue BB - continue Eliquis (2) CAD (coronary artery disease) Comment: - No CP/SOB - Mildly elevated troponins 0.04, 0.05, 0.05 - stress test NM showing moderate inferior lateral fixed defect - in comparison to prior records from [place] no changes noted. He is also noted to have depressed ef 42% as well as frequent PVS, bijeminy. - Appreciate cardiology consult - will f/u in office in 3 weeks (3) HTN (hypertension) Status: Chronic Comment: - stable. - DC losartan, continue metoprolol (new) (4) DVT prophylaxis Comment: eliquis Status and Disposition: OBV. Plan for DC today
[2017-10-13 17:17] VITALS: BP 155/60
[2017-10-13] MEDS ORDERED: Gabapentin CAP(*) 300 MG PO SCH (21:00)
--- NOTE | 2017-10-14 04:16 | DS ---
CC: NARA Villasenor, [place], [place]; Dr. Contreras; Dr. Florin Cowan, [facility], [place], [place]* DISCHARGE SUMMARY: DATE OF ADMISSION: 10/11/17 DATE OF DISCHARGE: 10/13/17 PROVIDER: Shaneka Field NP ATTENDING PHYSICIAN: Dr. Garcia* (report dictated by Shaneka Field NP). PRIMARY CARE PROVIDER: NARA Villasenor, [place], [place] ADMINISTRATIVE INTERN: Dr. Contreras. ADMINISTRATIVE INTERN: Dr. Florin Cowan, [facility], [place], [place]. DISCHARGE DIAGNOSIS: Atrial fibrillation with rapid ventricular response, new diagnosis. SECONDARY DIAGNOSES: 1. Coronary artery disease, status post stent placement. 2. Hypertension. 3. Hyperlipidemia. 4. Obstructive sleep apnea. 5. Mitral valve regurgitation. 6. History of cardiomyopathy. 7. Former smoker. DISCHARGE MEDICATIONS: 1. Gabapentin 600 mg p.o. q.p.m. 2. Flonase 50 mcg 2 sprays both nares daily p.r.n. 3. Zyrtec 10 mg p.o. daily. 4. Vitamin D3 1000 units p.o. daily. 5. Calcium carbonate 1000 mg p.o. daily. 6. Aspirin 81 mg p.o. daily. 7. Pitavastatin 4 mg p.o. daily. New medications: 1. Nitroglycerin 0.4 mg sublingual q.5 minutes p.r.n. chest pain, may take up to 3 doses and the patient was instructed to call lead python developer with use and/or if concerned, go to the emergency department. 2. Metoprolol tartrate 25 mg p.o. b.i.d. 3. Eliquis 5 mg p.o. b.i.d. HISTORY OF PRESENT ILLNESS AND HOSPITAL COURSE: Please see history and physical by Dr. Raymundo for full admission details, but in summary, this is a 77- year-old male, who resides half his time in [place], [place], and [place], [place], who was undergoing a sleep evaluation with Helen Bazzi NP, for obstructive sleep apnea, when on exam, he was noted to in rapid atrial fibrillation and the patient was brought over to the emergency department for evaluation. He was admitted under hospitalist service to the telemetry unit. He was asymptomatic to the atrial fibrillation. He initially received IV diltiazem in the emergency department and slowed into the 90s. Subsequently, he was started on metoprolol tartrate 25 mg b.i.d. with good response. He was started on Eliquis 5 mg p.o. b.i.d. and was evaluated by Cardiology the next day and underwent a JULI with cardioversion, which was successful. Dr. Contreras, lead python developer, performed the JULI cardioversion and reported that the patient tolerated the procedure well without complication. It was noted that his EF was 45% and we did not have a prior echo to compare at that time. Records from [place] were still being sent to the facility. Dr. Contreras recommended that the patient undergo a cardiac nuclear stress test, which he did, which did place him in at intermediate risk showing a moderate-sized fixed defect in the inferolateral wall with an ejection fraction of 45%. The patient's records did come today to the facility and it was noted that this is actually not a change in the patient's last previous cardiac nuclear test and he is noted to have a depressed EF. As well, he has been noted on telemetry to have multiple PVCs and bigeminy, which is noted in his previous record. The patient today is doing very well. He offers no complaints and would like to go home. He is tolerating the metoprolol well with concurrently staying in a normal sinus rhythm, shown to continue to have frequent PVCs and intermittent bigeminy. Dr. Contreras did follow up with the patient this evening and agrees with the plan of discharge home and follow up in his office in 3 weeks. During the patient's exercise portion of the stress test, he did experience some chest discomfort; however, this was felt to be possibly nonspecific. The patient will be sent home with sublingual nitro and he has had a prescription for this before in the past. He was instructed to call the lead python developer if he uses this prescription and/or go to the emergency department if there is any concern with chest pain. The patient was instructed to not ingest alcohol or caffeine. The patient is clinically stable for discharge home. He was also instructed to monitor his heart rate and if there are any concerns with a fast rate, he should come to the emergency department for further evaluation. DISCHARGE PLAN: 1. Stable for discharge home. 2. Follow up with primary care provider, NRAA Villasenor, within 4 to 7 days. 3. Follow up with Dr. Contreras in 3 weeks. TIME SPENT: Approximately 75 minutes was spent on this discharge. SHANEKA FIELD NP [id number]/[facility] #: [id number] ELVA
== END 2017-10-13 18:28 | disposition home or self-care (01) ==
LOC: ED 11:30 → MEDTELE 17:45
PROVIDERS: ADMIT Hospitalist; ATTEND Student in an Organized Health Care Education/Training Program
DX: I48.91 Unspecified atrial fibrillation (principal); I25.10 Atherosclerotic heart disease of native coronary artery without angina pectoris; Z95.5 Presence of coronary angioplasty implant and graft; I10 Essential (primary) hypertension; E78.5 Hyperlipidemia, unspecified; G47.33 Obstructive sleep apnea (adult) (pediatric); I34.0 Nonrheumatic mitral (valve) insufficiency; I42.9 Cardiomyopathy, unspecified; Z87.891 Personal history of nicotine dependence; Z79.82 Long term (current) use of aspirin
CPT/HCPCS: 36415; 71045; 78452; 80048; 80053; 80061; 81003; 83605; 83735; 83880; 84443; 84484; 85025; 85610; 85652; 85730; 86140; 93005; 93017; 93306; 96374; 96375; 99284; A9270-GY; A9502; G0378; J1160; J2250; J2310; J3010; J3490

== ENCOUNTER 2021-02-16 07:17 | Observation (INO) ==
[2021-02-16] MEDS ORDERED: fentaNYL 100 mcg/2 ml 50 MCG/ML VIAL ONE (09:00)
[2021-02-16] MEDS ORDERED: Iohexol 350 (CONTRAST) 200 ML MDV IV ONE ×2 (09:00→10:05)
[2021-02-16] MEDS ORDERED: Midazolam 5 mg/5 ml VIAL 1 mg/ml 5 ml VIAL (5 mg) ONE (09:00)
[2021-02-16] MEDS ORDERED: Heparin 2 UNITS/ML 1000 mls 2,000 ML IV ONE (09:00)
[2021-02-16] MEDS ORDERED: Lidocaine 1% VIAL 10 MG/ML VIAL ONE (09:00)
[2021-02-16] MEDS ORDERED: nitroGLYCERIN DRIP 25,000 MCG/250 ML BTL ONE (09:00)
[2021-02-16] MEDS ORDERED: Heparin 1,000 UNIT/ML 10 ml (10,000 UNITS) CATHLAB/DIALYSIS ONE (09:00)
[2021-02-16] MEDS ORDERED: niCARdipine 0.1MG/ML IVPREMIX 20 MG/200 ML BAG IV ONE (09:00)
[2021-02-16] MEDS ORDERED: ADENOSINE (DIAGNOSTIC) 3 MG/ML VIAL 90MG/30 ML IVPB ONE (09:45)
[2021-02-16] MEDS ORDERED: Heparin 2 UNITS/ML 1000 mls 1,000 ML IV ONE (09:57)
[2021-02-16] MEDS ORDERED: Atropine 0.1 MG/ML 10 ml SYR (1 mg) ONE (10:53)
[2021-02-16] MEDS ORDERED: Atropine 0.1 MG/ML 10 ml SYR (1 mg) IV PUSH PRN (10:55)
[2021-02-16] MEDS ORDERED: Ondansetron 4 mg VIAL 2 MG/ML 2 ml VIAL IV PRN (10:55)
[2021-02-16] MEDS ORDERED: PITAVASTATIN 4 MG PO SCH ×2 (21:00→22:00)
[2021-02-17 06:10] LABS: ABS Eosinophils 0.1 10^3/ul (0-0.6); ABS Monocytes 0.5 10^3/ul (0-0.8); ABS Neutrophils 3.9 10^3/ul (1.5-7.7); Eosinophil % 1.9 %; Hematocrit 35 % (42-52); Hemoglobin 11.8 g/dL (14.0-18.0); Lymphocyte % 18.4 %; Mean Corpuscular HGB Conc 34 g/dL (31-36); Mean Corpuscular Hemoglobin 32 pg (27-31); Mean Corpuscular Volume 94 fL (80-94); Mean Platelet Volume 9.7 fL (7.4-10.4); Platelet Count 125 10^3/uL (150-450); Red Blood Count 3.73 10^6 /uL (4.18-5.48); Red Cell Distribution Width 14 % (10-15); White Blood Count 5.6 10^3/uL (3.5-10.8)
[2021-02-17 06:43] LABS: Calcium 8.9 mg/dL (8.6-10.3)
[2021-02-17] MEDS ORDERED: Aspirin EC 81 mg TAB.EC (enteric coated) PO SCH (09:00)
[2021-02-17 09:04] VITALS: BP 117/72
== END 2021-02-17 13:15 | disposition home or self-care (01) ==
LOC: CHICATH 07:17 → ICU 07:17
PROVIDERS: ADMIT Internal Medicine; ATTEND Internal Medicine

== ENCOUNTER 2021-12-09 18:32 | Observation (INO) ==
[2021-12-09] MEDS ORDERED: Iodixanol (CONTRAST) 320 MG/ML 100 ML SDV IV ONE (18:47)
[2021-12-09 19:08] LABS: ABS Eosinophils 0.1 10^3/ul (0-0.6); ABS Lymphocytes 1.2 10^3/ul (1.0-4.8); ABS Monocytes 0.6 10^3/ul (0-0.8); ABS Neutrophils 4.4 10^3/ul (1.5-7.7); Eosinophil % 1.3 %; Hematocrit 39 % (42-52); Hemoglobin 12.8 g/dL (14.0-18.0); Lymphocyte % 19.7 %; Mean Corpuscular HGB Conc 33 g/dL (31-36); Mean Corpuscular Hemoglobin 31 pg (27-31); Mean Corpuscular Volume 96 fL (80-94); Mean Platelet Volume 9.8 fL (7.4-10.4); Platelet Count 108 10^3/uL (150-450); Red Blood Count 4.11 10^6 /uL (4.18-5.48); Red Cell Distribution Width 15 % (10-15); White Blood Count 6.3 10^3/uL (3.5-10.8)
[2021-12-09 19:17] LABS: INR 1.48 (0.89-1.11)
[2021-12-09 19:18] LABS: Activated Partial Thrombo Time 38.8 seconds (26.0-38.0)
[2021-12-09 19:55] LABS: Albumin 4.3 g/dL (3.2-5.2); Calcium 9.2 mg/dL (8.6-10.3); Globulin 2.2 g/dL (2-4); HDL Cholesterol 34.5 mg/dL; Potassium 4.3 mmol/L (3.5-5.0); Total Bilirubin 1.6 mg/dL (0.2-1.0); Total Protein 6.5 g/dL (6.4-8.9); eGFR CKD-EPI 68.9 (>60)
[2021-12-10] MEDS ORDERED: Calcium Carb (TUMS) 500 mg CHEW TAB PO ONE (04:07)
[2021-12-10 06:15] LABS: ABS Eosinophils 0.1 10^3/ul (0-0.6); ABS Monocytes 0.5 10^3/ul (0-0.8); ABS Neutrophils 2.4 10^3/ul (1.5-7.7); Eosinophil % 2.9 %; Hematocrit 38 % (42-52); Hemoglobin 12.5 g/dL (14.0-18.0); Lymphocyte % 23.7 %; Mean Corpuscular HGB Conc 33 g/dL (31-36); Mean Corpuscular Hemoglobin 32 pg (27-31); Mean Corpuscular Volume 95 fL (80-94); Mean Platelet Volume 9.9 fL (7.4-10.4); Platelet Count 100 10^3/uL (150-450); Red Blood Count 3.96 10^6 /uL (4.18-5.48); Red Cell Distribution Width 14 % (10-15)
[2021-12-10 06:40] LABS: Potassium 4.2 mmol/L (3.5-5.0); eGFR CKD-EPI 70.5 (>60)
[2021-12-10] MEDS ORDERED: Influenza vaccine *QUAD* *2022-23* 0.5 ML SYRINGE IM ONE (09:00)
[2021-12-10] MEDS ORDERED: Calcium Carb (TUMS) 500 mg CHEW TAB PO PRN (19:27)
[2021-12-10] MEDS ORDERED: PITAVASTATIN 4 MG PO SCH (21:00)
[2021-12-11 11:23] VITALS: BP 127/62
== END 2021-12-11 13:30 | disposition home or self-care (01) ==
LOC: EDHOLD 18:32 → ED 18:32 → SUATTDRO 22:47 → MEDTELE 12-10 01:46
PROVIDERS: ADMIT Internal Medicine; ATTEND Internal Medicine